=== PATIENT | male | born 1985 | race Caucasian/White ===

== ENCOUNTER 2019-05-18 13:45 | Emergency (ER) | payer MEDICAID, OTHER ==
[~2019-05-18] VITALS: Ht 170.2 cm; Wt 72.7 kg
[2019-05-18] MEDS ORDERED: DIVA500T9 PO (14:14)
[2019-05-18] MEDS ORDERED: divalproex sod 250mg ER (24-hour) tablet PO SCH (14:15)
[2019-05-18 14:28] VITALS: BP 139/80
--- NOTE | 2019-05-18 14:37 | NUR ---
ADMIN DEPAKOTE ORDERED. REGISTRATION IN ROOM TO INFORM/INSTRUCT PT REGARDING HIS INSURANCE WHICH WILL COVER HIS RX FOR DEPAKOTE THAT HE IS GETTING ON DC.
--- NOTE | 2019-05-18 14:41 | NUR ---
PT IS HOMELESS, PT IS OFFERED FOOD AND A RIDE TO THE [place]ISSION BUT DECLINES. IT IS NOT RAINING AND THE SUN IS OUT. PT HAS APPROPRIATE CLOTHES.
== END 2019-05-18 14:45 | disposition home or self-care (01) ==
LOC: ER 13:46
DX: R25.2 Cramp and spasm (principal); M79.604 Pain in right leg; M79.601 Pain in right arm; M54.2 Cervicalgia; R56.9 Unspecified convulsions; F12.90 Cannabis use, unspecified, uncomplicated; F15.90 Other stimulant use, unspecified, uncomplicated; F17.200 Nicotine dependence, unspecified, uncomplicated; Z91.19 Patient's noncompliance with other medical treatment and regimen; Z88.8 Allergy status to other drugs, medicaments and biological substances; Z79.899 Other long term (current) drug therapy
CPT/HCPCS: 93005; 99283